=== PATIENT | female | born 1955 | race Caucasian/White ===

== ENCOUNTER 2019-03-08 23:46 | Inpatient (IN) | payer OTHER ==
[~2019-03-08] VITALS: Ht 165.1 cm; Wt 80.9 kg
[2019-03-08 23:49] VITALS: BP 61/36
[2019-03-09] VITALS (62 sets, daily range): BP systolic 56–169; BP diastolic 23–137
[2019-03-09 01:09] LABS: BASOPHILS 0.7 % (0.0-2.0); RBC 1.24 mil/uL (4.20-5.00); WBC 5.7 thou/uL (4.0-11.0)
[2019-03-09 01:11] LABS: ABSOLUTE NEUTROPHILS 4.1 thou/uL (1.4-8.2); EOSINOPHILS 0.6 % (0.0-3.0); LYMPHOCYTES 22.3 % (24.0-44.0); MCHC 32.6 g/dL (28.0-37.0); MCV 91.9 fL (80.0-100.0); MONOCYTES 4.7 % (1.0-8.0); PLATELET COUNT 98 thou/uL (150-400); POLYS 71.7 % (36.0-66.0); RDW 17.5 % (10.5-14.5)
[2019-03-09 01:13] LABS: HEMATOCRIT 11.4 % (37.0-47.0); HEMOGLOBIN 3.7 gm/dL (12.0-15.0)
[2019-03-09 01:16] LABS: ANION GAP 17 mmol/L (7-16); BUN 48 mg/dL (7-18); CALCIUM 7.9 mg/dL (8.5-10.1); CHLORIDE 102 mmol/L (98-107); CO2 19 mmol/L (21-32); CREATININE 1.3 mg/dL (0.6-1.0); GLUCOSE 125 mg/dL (74-106); POTASSIUM 3.9 mmol/L (3.5-5.1); SODIUM 138 mmol/L (136-145)
[2019-03-09 01:26] LABS: ALBUMIN 2.7 g/dL (3.4-5.0); DIRECT BILIRUBIN < 0.1 mg/dL (<0.1-0.3); SGOT 10 U/L (15-37); SGPT 20 U/L (30-65); TOTAL BILIRUBIN 0.2 mg/dL (<0.1-1.0); TOTAL PROTEIN 5.6 g/dL (6.4-8.2); TROPONIN-I <0.06 ng/mL (<0.06)
--- NOTE | 2019-03-09 04:30 | NUR ---
ADMISSION NOTE: PT ARRIVED ON THE UNIT @ 5010 03/09/19, WITH THE ASSIST OF PANCHITO MOREL FROM THE ER, ONLY GTT RUNNING @ ARRIVAL IS LEVOPHED RUNNING @ 24. ASSESSMENTS AND VSS COMPLETE PER ICU PROTOCOL. PT ALERT TO SELF ONLY, PER REPORT FROM SPAR MACHINE OPERATOR, PT HAS DEMENTIA ( BASELINE), PT ABLE TO FOLLOW SIMPLE COMMANDS. PT SR ON THE MONITOR, AFEBRILE, NO EDEMA NOTED, ALL LIMBS WARM. PT ON 4L OF 02, SATS IN THE HIGH 90'S, PT DESATS WHILE ASLEEP. PT NPO, PROTONIX GTT IN PLACE. ANDINO IN PLACE, GOP NOTED. WILL CONTINUE TO FOLLOW ORDERS. FALL PRECAUTIONS IN PLACE, PLAN OF CARE- CONT TO MONITOR.
[2019-03-09 06:31] LABS: HEMATOCRIT 24.7 % (37.0-47.0); MCH 28.4 pg (26.0-34.0); MCHC 33.2 g/dL (28.0-37.0); OBSERVED RETIC COUNT 1.25 % (0.6-2.6); RBC 2.88 mil/uL (4.20-5.00); RDW 15.9 % (10.5-14.5); WBC 11.2 thou/uL (4.0-11.0)
[2019-03-09 06:33] LABS: HEMOGLOBIN 8.2 gm/dL (12.0-15.0); MCV 85.6 fL (80.0-100.0)
[2019-03-09 06:49] LABS: CALCIUM 7.9 mg/dL (8.5-10.1); CREATININE 1.2 mg/dL (0.6-1.0)
[2019-03-09 06:52] LABS: % SATURATION 98 % (20-39); IRON 295 ug/dL (50-170); TIBC 302 ug/dL (250-450)
[2019-03-09 07:24] LABS: FOLIC ACID 8.6 ng/mL (8.6-58.9)
[2019-03-09 10:15] LABS: URINE BILIRUBIN NEGATIVE (Negative); URINE BLOOD 1+ (Negative); URINE CLARITY CLEAR; URINE COLOR YELLOW; URINE GLUCOSE-RANDOM* NEGATIVE (Negative); URINE KETONES NEGATIVE (Negative); URINE NITRITE-REFLEX NEGATIVE (Negative); URINE PROTEIN (DIPSTICK) NEGATIVE (Negative); URINE UROBILINOGEN 0.2 E.U./dl (0.2-1.0)
[2019-03-09 10:20] LABS: URINE LEUKOCYTES-REFLEX 1+ (Negative)
[2019-03-09 10:22] LABS: HEMATOCRIT 23.3 % (37.0-47.0); HEMOGLOBIN 7.8 gm/dL (12.0-15.0)
[2019-03-09 10:33] LABS: CASTS None Seen /LPF (None Seen); SQUAMOUS 0-3 Few /LPF (0-3)
[2019-03-09 10:34] LABS: BACTERIA-REFLEX None Seen /HPF (None Seen); CRYSTALS None Seen /LPF (None Seen); URINE RBC 0-2 Rare /HPF (0-2); URINE WBC-REFLEX 6-15 Few /HPF (0-5)
--- NOTE | 2019-03-09 11:56 | NUR ---
PT USING OUT OF BED AGITATED WITH STAFF KICKING NURSES. PULLED OUT LINES FOR BLOOD PRESSURE SUPPORT MEDS. NOW. SECURITY PAGED NOW. CHARGE NURSE AT BEDSIDE IN RESTRAINTS NOW
--- NOTE | 2019-03-09 12:17 | NUR ---
MARIA R IV TEAM UP TO START IV ACESS PT IN RESTRAINTS AND A LITTLE BIT MORE CALMER NOW AFTER MEDS. REMAINS IN SOFT WRIST RESTRAINTS BILATERAL. AND SAFE ORDER IN COMPUTER AND CHARTING MAINTIAINED. FOR PT AND NURSES SAFETY AT THIS TIME
--- NOTE | 2019-03-09 12:28 | NUR ---
Case opened to follow for dc planning. Pt is a&ox1 this morning. Vibration Analyst spoke with the socialworker at [facility]. The pt has been there about one month. She was admitted to their secured memory care unit and [place]. The pt does have a DPOA for HC and a copy is on the chart. The pt's sign other of many years Curt Fleming is the primary agent and son Mayco the alternate. Vibration Analyst spoke with Curt. He will be in later today. He is aware that she is in ICU on pressure support. He reports that he has called the pt's dtr in law Felicia Heart to update her son Mayco. Apparently Mayco has lost his cell phone. Curt would like the pt's dtr in law added to the spokes persons list. He reports that she was a DNR at [facility];however the long-term has her listed as a full code. He would like to discussed DNR status with the attending. The attending updated as well as nursing. The pt has hx of ethol abuse and depression/PTSD. Dc plan at this time is to [facility]. She normally walks with a cane and is a smoker. Will follow along to assist with her return to the facility when medically stable.
--- NOTE | 2019-03-09 13:51 | NUR ---
WOUND CONSULT: PT. WAS SEEN TODAY BY DR. JONES AND MYSELF. PT. HAS DIABETIC ULCERS TO HER LEFT FOOT LEFT GREAT TOE AND LEFT 4TH TOE. BOTH SITES HAVE STABLE BLACK ESCHAR AT THIS TIME. RECOMMENDATIONS: PAINT WITH BETADINE, LEAVE OPEN TO AIR, COMPLETE CARES DAILY PT. AND STAFF NURSE WERE INSTRUCTED ON PLAN OF CARE.
--- NOTE | 2019-03-09 15:18 | NUR ---
VASCULAR ACCESS CONSULTED FOR PICC, PT'S MEDS,HISTORY,LABS REVIEWED. PT HAS HX OD EMBOLI/THROMBUS IN UPPER EXTREMETIES.,SO PICC IN CONTRAINDICATED. PT IS VERY RESTLESS,SHE DID LET ME START PIV BUT REFUSED TO LET ME START A 2ND IV, REFUSING FOR ME TO EVEN LOOK WITH THE ULTRASOUND. WILL LET PT CALM DOWN BEFORE ATTEMPTING TO APPROACH AGAIN.
--- NOTE | 2019-03-09 17:05 | NUR ---
VASCULAR ACCESS CONSULTED FOR CENTRAL LINE PLACEMENT. PT WAS PREPPED AND DARPED FOR MAX BARRIER PRECAUTIONS. RIJ WAS WIDELY PATENT WITH USG, 1% LIDOCAINE GIVEN SQ. 6FR TL JACC 25CM INSERTED TO 7CM EXTERNAL. LINE SECURED AND STAT CXR ORDERED
--- NOTE | 2019-03-09 17:09 | NUR ---
RIKenneth RELEASED FOR IMMEDIATE USE PER PROTOCOL TO TATYANA MOREL
[2019-03-09 17:44] LABS: POTASSIUM 3.6 mmol/L (3.5-5.1)
--- NOTE | 2019-03-09 17:47 | NUR ---
PT IS ALERT TO SELF AND SITUATION. IS CONFUSED ON TIME THINKS ITS 1950'S PT REPORTS. HISTORY OF DEMENTIA. CHANGED CODE STATUS TODAY TO DNR. PER DPOA OF FAMILY. LUNGS ARE CLEAR. TO DIMINISHED. ON 4 LITERS OXYGEN. ON LEVO AND MARNIE FOR BLOOD PRESSURE SUPPORT. ABDOMEN IS SOFT AND ROUND BOWEL SOUNDS ACTIVE X4. RESTRAINTS BILATERAL WRIST PT GOT COMBATIVE AND AGITATED TOWARDS STAFF. HALIDOL GIVEN. PT IN NSR TO BIGEMINY TODAY. DR. LOERA AWARE . LABS DONE AND IV TEAM PUT A LEFT JUGULAR IN TODAY FOR ACCESS OF PT. WILL CONTINUE PLAN OF CARE PER NURSING
[2019-03-09 17:50] LABS: ALBUMIN 2.6 g/dL (3.4-5.0); MAGNESIUM 1.6 mg/dL (1.8-2.4); TOTAL BILIRUBIN 0.5 mg/dL (<0.1-1.0); TOTAL PROTEIN 5.5 g/dL (6.4-8.2)
--- NOTE | 2019-03-09 18:57 | NUR ---
PAGED DR. LOERA NO CALL BACK AND PAGED Marisela STUBBS SKIN PILER IN REGARDS TO PT STATUS FOR ORDERS AND CHANGE IN PTS STATUS.
[2019-03-09 20:58] LABS: URINE BILIRUBIN NEGATIVE (Negative); URINE BLOOD 1+ (Negative); URINE CLARITY CLEAR; URINE COLOR YELLOW; URINE GLUCOSE-RANDOM* NEGATIVE (Negative); URINE KETONES NEGATIVE (Negative); URINE LEUKOCYTES 2+ (Negative); URINE NITRITE NEGATIVE (Negative); URINE PROTEIN (DIPSTICK) 2+ (Negative); URINE SPECIFIC GRAVITY 1.015 (1.005-1.035); URINE UROBILINOGEN 0.2 E.U./dl (0.2-1.0)
[2019-03-09 21:09] LABS: BACTERIA None Seen /HPF (None Seen); CASTS None Seen /LPF (None Seen); CRYSTALS None Seen /LPF (None Seen); SQUAMOUS 0-3 Few /LPF (0-3); URINE RBC 3-10 Few /HPF (0-2); URINE WBC >25 Many /HPF (0-5)
--- NOTE | 2019-03-09 21:38 | NUR ---
Pt became diaphoretic and c/o not feeling well. She became hypotensive and desaturation post contrast was given. IVF bolus was given, titrating Neosynnephrine to Max dose during this RN tx her back to ICU. Notified her nurse for possible reaction to contrast. See orders.
[2019-03-10] VITALS (101 sets, daily range): BP systolic 69–134; BP diastolic 34–80
--- NOTE | 2019-03-10 06:17 | NUR ---
ASSUMED CARE 1900 03/09/19, PT ASSESSMENTS AND VSS COMPLETE PER ICU PROTOCOL. PT ALERT TO SELF AND SITUATION, DISORIENTED TO TIME AND PLACE, PER REPORT PT HAS A BASELINE OF DEMENTIA, PT ABLE TO FOLLOW COMMANDS, PT DOES GET RESTLESS AND PULL ON MEDICAL EQUIPMENT, RESTRAINTS IN PLACE TO PROTECT PT. PT IN SR, VISIBLE U WAVES- BIGEMINY ON THE MONITOR, PROVIDER AWARE, PT ON LEVOPHED AND MARNIE FOR BLOOD PRESSURE SUPPORT, NS @ 125 CC/HR. CONTRAST DYE HAS BEEN ADDED TO THE ALLERGIC REACTIONS, PT HAD A REACTION WHEN SHE WENT TO CT FOR TEST, SHE BECAME HYPOTENSIVE, SATS DROPPED, DIAPHORETIC, DAIVD TOWEL SEWER CALLED, ORDERS RECIEVED, PT DOWN TO BASELINE NOW. PT ON 4L NC WHILE AWAKE AND ON CPAP WHILE ASLEEP. PT ON A SOFT/FIBER DIET, PROTINIX GTT IN PLACE, HX OF HEMO-OCCULT + ANDINO IN PLACE, GOP NOTED. PLAN OF CARE- CONT TO MONITOR TO MONITOR.
[2019-03-10 07:51] LABS: HEMATOCRIT 23.8 % (37.0-47.0); HEMOGLOBIN 8.2 gm/dL (12.0-15.0)
[2019-03-10 08:25] LABS: BE(vivo) -4.3 mmol/L (-2 to +3); HCO3 20.5 mmol/L (22.0-26.0); PCO2 36.3 mmHg (35.0-45.0); PO2 150.8 mmHg (80.0-100.0); pH 7.369 (7.360-7.450); sO2 98.9 % (92.0-98.0)
--- NOTE | 2019-03-10 08:55 | HC ---
[facility] [place] [address] CONSULTATION Name: DIANE LIEBERMAN Room #: 247-P ADM IN M.R.#: [id number] Admission: 03/09/19 ������������������ Attend Phys: Jaron Salas MD Discharge: ������������������ Date of : 57 Report #: [id number] THIS REPORT FOR: //name// CC: Curt Salas DATE OF SERVICE: 03/09/2019 CHIEF COMPLAINT: Diabetic ulcerations to the left first and fourth toes. HISTORY OF PRESENT ILLNESS: This is a 63-year-old female patient who was admitted to the hospital with a history of hypotension. She apparently was previously found wandering in the streets and sent to a nursing care facility about a month ago. She is awake and alert, but confused. She felt to have possible upper GI bleeding. I have been asked to see her with regard to ulcers of her left foot that have been present possibly for a month. She states that she has been walking around outdoors without shoes on. PAST MEDICAL HISTORY: Positive for COPD, dementia, hepatitis C, hypothyroidism, type 2 diabetes mellitus. Past history of alcohol abuse, major depression, PTSD, insomnia, sleep apnea, heart disease, cerebrovascular accident, AAA, peripheral vascular disease, gastroesophageal reflux. ALLERGIES: PENICILLIN. MEDICATIONS: Include aztreonam, Haldol, insulin, norepinephrine. FAMILY HISTORY: Noncontributory. REVIEW OF SYSTEMS: Not obtainable due to the patient's confusion, other than that, mentioned in the history of present illness. PHYSICAL EXAMINATION: VITAL SIGNS: Temperature 98.8, pulse 88, respiratory rate of 14, blood pressure 102/53. GENERAL: This is a chronically ill, slightly agitated appearing female patient who appears to be in no distress. HEENT: Head normocephalic. Nose and throat are clear. NECK: Supple. LUNGS: Clear. ABDOMEN: Soft. Bowel sounds present. EXTREMITIES: Lower extremities demonstrate an eschar on the tips of the left first and fourth toes. No bony exposure is noted. The eschar appears to be quite thick on the distal portion of the left great toe. There is no overt evidence of infection. Distal pulses are palpable. [facility] [address] [place] [address] CONSULTATION Name: DIANE LIEBERMAN Room #: 247-P ADM IN M.R.#: [id number] Admission: 03/09/19 ������������������ Attend Phys: Jaron Salas MD Discharge: ������������������ Date of : 57 Report #: [id number] CLINICAL IMPRESSION: 1. Diabetic ulcerations to the left foot involving the first and fourth toes. 2. Sepsis and hypotension, possible hypovolemia. 3. Diabetes mellitus with hyperglycemia. 4. History of abdominal aortic aneurysm. RECOMMENDATIONS: At this point in time, we will apply topical "Betadine paint" to the eschar on the toes, otherwise, can be left open to air. I do not feel that it is necessary to do debridement at this time. I think the eschar may be protective at present and will likely slough over time if she epithelializes provided she has adequate blood flow. We will check an arterial Doppler to look at her macrovascular flow. I believe there is probably a component of microvascular disease related to her diabetes. She will need aggressive nutritional support. Recommend continuation of current medications. Reviewed findings and discussion with Dr. Salas. I appreciate being asked to see her in consultation. ��������������������������������������������� <ELECTRONICALLY SIGNED> ���������������������������������������� By: Elmer Gonzalez MD ��������������������������������������������� 03/10/19 0855 [id number] Elmer Gonzalez MD /nt
--- NOTE | 2019-03-10 09:08 | NUR ---
Assess due to notification of wound-pt with diabetic foot ulcer to left foot, and toes with eschar. Admitted with GIB, hgb down to 3.7 but improved after tranfusion 8.7 and no active bleed per GI. Hx etoh abuse, cva, dm. DNR status. Has been aggitated/combative and in restraints in ICU. No wt hx available. Unsure intake trends. For now offer glucerna shakes bid until po intake established. Low nutrition risk
--- NOTE | 2019-03-10 09:29 | EKG ---
[place] [address] [facility] [facility] [place] [address] ELECTROCARDIOGRAM REPORT Name: DIANE LIEBERMAN Room #: 247-P ADM IN M.R.#: [id number] ������������������ Admission: 03/09/19 ������������������ Attend Phys: Jaron Salas MD Discharge: ������������������ Date of : 57 Report #: [id number] ����������������������������������������������������������������� [id number] THIS REPORT FOR: //name// [facility] ED Test Date: 2019-03-09 Test Time: 00:27:04 Pat Name: DIANE LIEEBRMAN Department: Room: [facility] Gender: F Communications Clerk: cristel : 1955 Requested By: Doni Bahena Order Number: [id number] MD: Chu Hardwick Measurements Intervals [place] Rate: 92 P: 79 ID: [id number] QRS: 44 QRSD: 91 T: 224 QT: 338 QTc: 419 Interpretive Statements Sinus rhythm Nonspecific ST and T wave abnormality Compared to ECG 06/01/2000 15:51:10 ST and T wave abnormality is now present Electronically Signed On 03-10-2019 9:29:17 CDT by Chu Hardwick [email or web address] ��������������������������������������������� <ELECTRONICALLY SIGNED> ���������������������������������������� By: Chu Hardwick MD, [facility] ��������������������������������������������� 03/10/19 0929 Chu Hardwick MD, [facility] /EPI
--- NOTE | 2019-03-10 09:30 | EKG ---
[address] [place] [address] ELECTROCARDIOGRAM REPORT Name: DIANE LIEBERMAN Room #: 247-P ADM IN M.R.#: [id number] ������������������ Admission: 03/09/19 ������������������ Attend Phys: Jaron Salas MD Discharge: ������������������ Date of : 57 Report #: [id number] ����������������������������������������������������������������� [id number] THIS REPORT FOR: //name// [facility] ED Test Date: 2019-03-09 Test Time: 02:18:10 Pat Name: DIANE LIEBERMAN Department: Room: 247 Gender: F Computer System Technician: cristel : 1955 Requested By: Doni Bahena Order Number: [id number] MD: Chu Hardwick Measurements Intervals [place] Rate: 98 P: 90 [place]: 150 QRS: 57 QRSD: 95 T: 53 QT: 345 QTc: 441 Interpretive Statements Sinus rhythm ST and T wave abnormality Compared to ECG 06/01/2000 15:51:10 Nonspecific change in the T wave abnormality Electronically Signed On 03-10-2019 9:30:16 CDT by Chu Hardwick [email or web address] ��������������������������������������������� <ELECTRONICALLY SIGNED> ���������������������������������������� By: Chu Hardwick MD, [facility] ��������������������������������������������� 03/10/19 0930 7 7 Chu Hardwick MD, [facility] /EPI
--- NOTE | 2019-03-10 09:43 | EKG ---
[address] [place] [address] ELECTROCARDIOGRAM REPORT Name: DIANE LIEBERMAN Room #: 247- ADM IN M.R.#: [id number] ������������������ Admission: 03/09/19 ������������������ Attend Phys: Jaron Salas MD Discharge: ������������������ Date of : 57 Report #: [id number] ����������������������������������������������������������������� [id number] THIS REPORT FOR: //name// [facility] Test Date: 2019-03-09 Test Time: 16:33:03 Pat Name: DIANE LIEBERMAN Department: Room: [facility] Gender: F Target Network Analyst: Aftab JIMENEZ : 1955 Requested By: Jaron Salas Order Number: [id number] MD: Chu Hardwick Measurements Intervals [place] Rate: 83 P: 74 [place]: 141 QRS: 48 QRSD: 86 T: 13 QT: 368 QTc: 433 Interpretive Statements Sinus rhythm Nonspecific ST segment abnormality Compared to ECG 06/01/2000 15:51:10 No significant change was found Electronically Signed On 03-10-2019 9:43:32 CDT by Chu Hardwick [email or web address] ��������������������������������������������� <ELECTRONICALLY SIGNED> ���������������������������������������� By: Chu Hardwick MD, [facility] ��������������������������������������������� 03/10/19 0943 [id number] Chu Hardwick MD, [facility] /EPI
--- NOTE | 2019-03-10 11:23 | NUR ---
WOUND FOLLOW UP: PT. WAS SEEN TODAY BY DR. ROTHMAN AND MYSELF. PT. WOUNDS TO HER LEFT TOES REMAIN DRY AND STABLE AT THIS TIME. RECOMMENDATIONS: CONTINUE WITH CURRENT PLAN OF CARE. PT. AND STAFF NURSE WERE INSTRUCTED ON PLAN OF CARE.
[2019-03-10] MEDS ORDERED: TYLENOL325 MG PO (13:08)
[2019-03-10] MEDS ORDERED: ASPIR 8181 MG PO (13:09)
[2019-03-10] MEDS ORDERED: VITAMIN D1000 UNI1 PO (13:09)
[2019-03-10] MEDS ORDERED: ALBUTEROL2.5 MG/31 INH (13:09)
[2019-03-10] MEDS ORDERED: LIPITOR80 MG PO (13:09)
[2019-03-10] MEDS ORDERED: HUMALOG100 UNIT/1 SUBQ (13:10)
[2019-03-10] MEDS ORDERED: LANTUS100 UNIT/M SUBQ (13:10)
[2019-03-10] MEDS ORDERED: DEPAKOTE 250MG250 M1 PO (13:10)
[2019-03-10] MEDS ORDERED: IRON325 PO (13:10)
[2019-03-10] MEDS ORDERED: SYNTHROID175 MCG PO (13:11)
[2019-03-10] MEDS ORDERED: ZYVOX600 MG PO (13:11)
[2019-03-10] MEDS ORDERED: SINGULAIR 10 MG10 M1 PO (13:11)
[2019-03-10] MEDS ORDERED: SEROQUEL 50 MG50 MG PO (13:12)
[2019-03-10] MEDS ORDERED: PROBIOTIC1 EAC1 PO (13:12)
[2019-03-10] MEDS ORDERED: XARELTO20 MG PO (13:12)
[2019-03-10] MEDS ORDERED: VITAMIN C100 MG PO (13:13)
[2019-03-10] MEDS ORDERED: SYMBICORT160 MCG/4. INH (13:13)
--- NOTE | 2019-03-10 17:02 | NUR ---
PT IN RESTRAINTS BILATERAL WRIST. ALERT TO SELF CONFUSED ON TIME AND PLACE. LUNGS CLEAR TO DIMINISHED. BIGEMINY NOTED ON THE MECHANICAL ENGINEERING TECHNICIAN. ANDINO TO DD WITH CLEAR YELLOW URINE PRESENT. ON BLOOD PRESSURE MEDS FOR SUPPORT. ABDOMEN IS SOFT ON A SOFT DIET TODAY TOLERATED WELL. CHANGED SHEETS TODAY. EDUCATION DONE WITH RESTRAINTS AND BLOOD PRESSURE MEDS AND SAFETY IN REGARDS TO HER HEALTH. WILL CONTINUE TO ASSESA ND MONITOR PER NURSING
[2019-03-11] VITALS (82 sets, daily range): BP systolic 65–148; BP diastolic 33–87
--- NOTE | 2019-03-11 04:54 | NUR ---
ASSUMED PATIENT CARE AT 1900. PATIENT AAOX2 (SELF AND PLACE). LEVOPHED, NEOSYNEPHRINE, AND PROTONIX ARE INFUSING. PATIENT IS ON 4 L NC WITH O2 SATS AT 100% PATIENT BECAME VIOLENT AND BEGAN TO HIT AND TRIED TO KICK THIS RN. HALDOL GIVEN. PATIENT BEGGING FOR THE RESTRAINTS TO BE TAKEN OFF. EDUCATED PATIENT ON THEIR NEED D/T PATIENT HAS HX OF RIPPING OUT IV LINES. PATIENT CALMED DOWN AND RESTED. PATIENT REMAINS NEEDING VASOPRESSOR SUPPORT TO MAINTAIN ACCEPTABLE BLOOD PRESSURE. PATIENT REMAINS THE SAME AND IS NOT PROGRESSING TOWARDS GOAL.
[2019-03-11 05:00] LABS: ALBUMIN 2.6 g/dL (3.4-5.0); CALCIUM 7.7 mg/dL (8.5-10.1); CREATININE 0.8 mg/dL (0.6-1.0); MAGNESIUM 1.6 mg/dL (1.8-2.4); POTASSIUM 3.1 mmol/L (3.5-5.1); TOTAL BILIRUBIN 0.3 mg/dL (<0.1-1.0); TOTAL PROTEIN 5.4 g/dL (6.4-8.2)
[2019-03-11 05:06] LABS: HEMOGLOBIN 6.8 gm/dL (12.0-15.0)
[2019-03-11 05:08] LABS: MCH 29.7 pg (26.0-34.0); MCV 84.9 fL (80.0-100.0); PLATELET COUNT 97 thou/uL (150-400); RBC 2.27 mil/uL (4.20-5.00); RDW 15.8 % (10.5-14.5); WBC 10.7 thou/uL (4.0-11.0)
[2019-03-11 05:12] LABS: HEMATOCRIT 19.3 % (37.0-47.0)
[2019-03-11 05:43] LABS: ABSOLUTE NEUTROPHILS 8.1 thou/uL (1.4-8.2); ANISOCYTOSIS 1+; MICROCYTES 1+
[2019-03-11 05:47] LABS: PLATELET ESTIMATE DEC
--- NOTE | 2019-03-11 09:16 | NUR ---
WOUND FOLLOW UP: PT. WAS SEEN TODAY BY DR. WHITE AND MYSELF. PT. WOUNDS TO HER LEFT TOES REMAIN DRY AND STABLE. RECOMMENDATIONS: CONTINUE WITH CURRENT PLAN OF CARE. PT. AND STAFF NURSE WERE INSTRUCTED ON PLAN OF CARE.
--- NOTE | 2019-03-11 10:15 | NUR ---
Assumed care of patient at 0700. Patient remains in restraints to prevent pulling of central line, but is alert, Ox2, cooperative, and following commands at this moment. Very forgetful of surroundings and circumstances of hospital admission. Continues on pressors (levo and sakina) for BP support. Titrating down O2 as able. Call rec'd from Brittany Cabrera, infectious disease RN and instructed that patient could come out of contact precautions. Unit of PRBCs infusing as ordered. Report given to oncoming RN.
[2019-03-11 14:12] LABS: HEMATOCRIT 23.5 % (37.0-47.0)
[2019-03-11 14:27] LABS: APTT 25.3 Seconds (24.5-32.8); PROTIME 10.6 Seconds (9.3-11.4)
[2019-03-11 14:33] LABS: MAGNESIUM 1.5 mg/dL (1.8-2.4)
--- NOTE | 2019-03-11 15:39 | NUR ---
CAMERON FROM [facility] UPDATED NO WEEKEND DC FOR PT.
[2019-03-12] VITALS (71 sets, daily range): BP systolic 89–161; BP diastolic 40–138
[2019-03-12 05:00] LABS: HEMATOCRIT 21.1 % (37.0-47.0); HEMOGLOBIN 7.2 gm/dL (12.0-15.0)
[2019-03-12 05:08] LABS: HAV IgM AB (ANTI-HAV IgM) Negative (Negative); HEPATITIS B SURFACE AG Negative (Negative); HEPATITIS C VIRUS AB 1.3 (0.0-0.9)
[2019-03-12 05:11] LABS: PROTIME 10.4 Seconds (9.3-11.4)
[2019-03-12 05:12] LABS: ALBUMIN 2.4 g/dL (3.4-5.0); CALCIUM 7.4 mg/dL (8.5-10.1); CREATININE 0.9 mg/dL (0.6-1.0); MAGNESIUM 1.6 mg/dL (1.8-2.4); POTASSIUM 3.7 mmol/L (3.5-5.1); TOTAL BILIRUBIN 0.4 mg/dL (<0.1-1.0)
--- NOTE | 2019-03-12 05:50 | NUR ---
ASSUMED PATIENT CARE AT 1900. PATIENT AAOX1 TO SELF ONLY. PATIENT NOTED TO HAVE LEVOPHED, OCTREOTIDE, PROTONIX, AND NS INFUSING. NOTIFIED ENROLLMENT COUNSELOR THAT PATIENT HAS A LOW MG LEVEL. RECEIVED ORDERS TO REPLACE MG. PATIENT ALSO NOTED TO HAVE ABSENT RADIAL PULSES WITH THE DOPPLER. ARTERIAL US OF BUE DONE WHICH WAS NEGATIVE FOR BLOOD CLOTS. PATIENT CONTINUES TO HAVE PERIODS OF AGITATION DEMONSTRATING AGGRESSIVE BEHAVIOR AND AT OTHER TIMES IS CALM AND COORPERATIVE. PATIENT VS REMAINED STABLE THROUGOUT THE NIGHT WITH LEVOPHED INFUSING AT A LOW DOSE RATE. PATIENT PROGRESSING TOWARDS GOAL.
--- NOTE | 2019-03-12 19:00 | NUR ---
Assumed care of patient at 0700. Patient remains in restraints for forgetfullness or lines, and attempting to pull at leads, O2, etc. Continues on octreotide, protonix, IVF. Orders for 1 unit PRBCs. Patient having small to moderate bowel movements, continues to be dark, black, tarry. Weaned off all pressors, plans for EGD on Thursday per GI. At the start of the day patient was pleasantly confused, easily redirectable. During afternoon, patient was becoming more easily agitated and forgetful of surroundings. PRN haldo given per EMAR, with little affect. Approx 1630, this RN was alerted to the room by shouting from patient. Discovered that patient had pulled out left IJ central line, unit of blood was infusing. Stopped all pumps and pressure applied to IJ site. Hospitalist notified, family notified. Patient at this point was aggresive and combative towards nursing. Onetime dose IM ativan given to attempt another central line. IV team at bedside, multiple attempts for line with no success. PIV to left AC obtained. Dr. Dotson updated. New orders for PRN ativan/haldol per CIWA protocol. Dr. Dotson made aware that with limited IV access not all current med orders would be able to be given, he is ok with only doing protonix, octreotide, IVF as able. Blood transfusion never finished as it took too long to re-establish IV access. Patient rec'd approx 2/3 of unit. See vitals documentation. Report given to oncoming RN.
--- NOTE | 2019-03-12 19:17 | NUR ---
vascular access team called to replace rij since pt pulled it out this afternoon.. PT VERY RESTLESS ,REFUSING ANY PIV'S OR JUGULAR LINE REPLACEMENT. HARPAL MOREL SPOKE WITH , ATIVAN GIVEN TO CALM PT FOR CENTRAL LINE INSERTION DUE TO MEDICAL NECCESSITY. LEFT JUGULAR IS NONCOMPRESSABLE. RIGHT PREVIOUS SITE HAS LARGE BRUISE DUE TO PT PULLED RIJ OUT DURING BLOOD TRANSFUSION. AFTER PT WAS CALM, PT WAS PREPPED AND DRAPED FOR MAX BARRIER PRECAUTIONS. NEEDLE INSERTED INTO RIJ THEN WHEN THREADING GUIDEWIRE PT BECAME COMBATIVE EVEN WITH ANOTHER RN ASSISTING TO HOLD PT'S HEAD. PT THEN BIT THROUGH THE PLASTIC AND BIT IV TEAM RN'S FINGER AND NEEDLE BECAME DISLODGED WITH SMALL HEMATOMA FORMING ON R NECK. PRESSURE HELD, DRG APPLIED.MADE SEVERAL ATTEMPTS ON RIJ BUT UNSUCCESSFUL. PIV STARTED. PICC LINE NOT APPROPRIATE DUE TO HX OF DVT'S IN UPPER EXTREMETIES. BUT UNSUCCESSFUL AND PT GETTING MORE COMBATIVE. PIV PLACED IN LAC. HARPAL MOREL NOTIFIED MD.NO FURTHER BLEEDING NOTED ON RIGHT NECK
--- NOTE | 2019-03-12 23:45 | NUR ---
AOX1, CONFUSED. ON 3L NC, NO SIGNS OF SOA AT REST. VSS. AFEBRILE. IV STARTED BY GEORGE TONG. REPORT GIVEN TO ZULEYMA MOREL. WILL CONTINUE TO MONITOR
[2019-03-13] VITALS (120 sets, daily range): BP systolic 69–173; BP diastolic 32–133
[2019-03-13 06:22] LABS: HEMATOCRIT 26.3 % (37.0-47.0); HEMOGLOBIN 8.9 gm/dL (12.0-15.0); MCH 29.3 pg (26.0-34.0); MCHC 33.8 g/dL (28.0-37.0); MCV 86.6 fL (80.0-100.0); RBC 3.04 mil/uL (4.20-5.00); RDW 14.9 % (10.5-14.5); WBC 8.6 thou/uL (4.0-11.0)
--- NOTE | 2019-03-13 06:49 | NUR ---
ASSUMED CARE AT 2330. PT LETHARGIC AND SLIGHTLY RESTLESS AT THE TIME. PT CONTINUED TO GET
--- NOTE | 2019-03-13 07:14 | NUR ---
ASSUMED CARE AT 2330. PT LETHARGIC AND SLIGHTLY RESTLESS. PT CONTINUED TO BECOME MORE RESTLESS AND WAS GIVEN ATIVAN PRN. EARLIER THIS AM, PT'S O2 SAT DROPPED TO THE LOW 80s AND PT'S O2 WAS INCREASED. EVENTUALLY, PT WAS SWITCHED TO CPAP. AT ABOUT 0600 THIS AM, ONE OF THE PT'S IVs INFILTRATED SO OCTREOTIDE GTT WAS STOPPED AND PROTONIX GTT CONTINUED UNTIL MORE IV ACCESS IS OBTAINED. ATTEMPTS WERE MADE TO START A NEW IV, BUT WERE UNSUCCESSFUL. WILL CONTINUE TO MONITOR.
[2019-03-13 08:06] LABS: ALBUMIN 2.8 g/dL (3.4-5.0); CALCIUM 7.8 mg/dL (8.5-10.1); CREATININE 0.9 mg/dL (0.6-1.0); MAGNESIUM 1.9 mg/dL (1.8-2.4); PHOSPHORUS 2.8 mg/dL (2.5-4.9); POTASSIUM 3.6 mmol/L (3.5-5.1)
--- NOTE | 2019-03-13 14:36 | NUR ---
PATIENT REMAINS CONFUSED THIS AM AND DROWSY. PATIENT CONTINUES TO SWING LEGS AND PULLS AGAINEST RESTRAINTS. DR OROZCO HERE TO PLACE A CENTRAL LINE ON PATIENT. PATIENT GRABBING THE PHYSICIAN, ORDER RECIEVED TO GIVE 4 OF ATIVAN. PATIENT CONTINUES TO GRAB AT THE DOCTOR AND ANOTHER 2MG OF ATIVAN ORDERED AND GIVEN. PATIENT THEN BECAME QUIET ENOUGH TO GET THE LINE PLACED. PRECEDEX STARTED PER ORDERS TO HELP PATIETN REMAIN CALM. NO OTHER CONCERNS AT THIS TIME. WILL CONTINUE TO MONITOR AND CARE PER PLAN OF CARE.
[2019-03-14] VITALS (69 sets, daily range): BP systolic 107–168; BP diastolic 45–89
[2019-03-14 05:17] LABS: HEMOGLOBIN 7.4 gm/dL (12.0-15.0); MCH 29.5 pg (26.0-34.0); MCHC 33.5 g/dL (28.0-37.0); MCV 87.9 fL (80.0-100.0); RBC 2.5 mil/uL (4.20-5.00); RDW 15.1 % (10.5-14.5); WBC 7.3 thou/uL (4.0-11.0)
[2019-03-14 05:31] LABS: CALCIUM 7.5 mg/dL (8.5-10.1); CREATININE 0.9 mg/dL (0.6-1.0); MAGNESIUM 1.7 mg/dL (1.8-2.4); POTASSIUM 3.5 mmol/L (3.5-5.1); TOTAL BILIRUBIN 0.4 mg/dL (<0.1-1.0); TOTAL PROTEIN 4.6 g/dL (6.4-8.2)
--- NOTE | 2019-03-14 06:00 | NUR ---
PT NPO FOR EGD THIS AM. REMAINS ON PRECEDEX AT 1 MCG FOR SEDTION. REQUIRED ATIVAN 3 X FOR SEVERE RESTLESSNESS. THROWS LEGS OVER BED RAIL. LEVOPHED GTT HAS REMAINS OFF THIS SHIFT. VSS SB TO SR NO BERNARDO,. WILL CONT TO MONITOR.
--- NOTE | 2019-03-14 14:21 | NUR ---
PATIENT HAD AN EGD, TOLERATED WELL. SHE IS SLEEPY AT THIS TIME, HOWEVER WITH ORAL CARE AND PUTTING BACK ON CPAP MACHINE SHE BECAME AGGITATED AND ATTEMPTED TO GRAB AT NURSE AND EQUIPMENT. WHEN LEFT ALONE, SHE IS ABLE TO REST. WHEN MESSED WITH SHE BECOMES AGGITATED. WILL CONTINUE TO MONITOR PATIENT STATUS.
--- NOTE | 2019-03-14 17:02 | NUR ---
FAXED CLINICAL UPDATE TO [facility] LEFT MS WITH ADM. OF UPDATE FAXED. DCP TO FOLLOW.
--- NOTE | 2019-03-14 17:03 | NUR ---
FAXED CLINICAL UPDATE TO [facility] SPOKE WITH CAMERON VIERA RECEIVED UPDATE. DCP TO FOLLOW.
--- NOTE | 2019-03-14 17:20 | NUR ---
PATIENT HAS RESTED THROUGHOUT THE DAY. SHE IS AWAKE AT THIS TIME WITH EYES OPEN. SHE EXPRESSED SHE DOESN'T KNOW WHERE SHE IS. CPAP IS CURRENTLY ON AND IN PLACE. SHE DENIES PAIN AT THIS TIME. SHE HAD AN EGD TODAY AND TOLERATED IT WELL PER REPORT. NURSE ATTEMPTED TO NOTIFY FAMILY AND LINE WAS BUSY. NURSE TO CALL BACK SHORTLY. PLAN OF CARE IS TO CONTINUE TO MONITOR PATIENT ASSESSMENTS, VITAL SIGNS, ORAL CARE Q2 HOURS, AND REPOSITION. REORIENTATION PROVIDED THROUGHOUT THE DAY. SHE HAS HAD TIMES OF AGGITATION AND PULLING GOWN OFF WELL PULLING AT LINES. RESTRAINTS TO CONTINUE AT THIS TIME PER PHYSICIAN ORDER.
--- NOTE | 2019-03-14 20:51 | NUR ---
[facility] 9. DOES NOT OPEN EYES, CONFUSED, WITHDRAWS FROM PAINFUL STIMULI. PT ALTERNATES BETWEEN LETHARGY AND AGITATION. BECOMES AGITATED IN RESPONSE TO EVEN MINIMAL EXTERNAL STIMULI. MANAGING AGITATION WITH PRECEDEX. WHEN PT MORE ALERT, SHE BECOMES COMBATIVE. BUE RESTRAINTS IN PLACE. SINUS BRADYCARDIA TO SINUS RHYTHM ON MONITOR. LUNGS DIMINISHED TO AUSCULTATION. CPAP IN USE. VITAL SIGNS AND ASSESSMENTS DOCUMENTED. WILL CONTINUE TO MONITOR.
[2019-03-15] VITALS (24 sets, daily range): BP systolic 106–144; BP diastolic 50–77
[2019-03-15 05:08] LABS: HEMATOCRIT 24.1 % (37.0-47.0); HEMOGLOBIN 8.3 gm/dL (12.0-15.0); MCH 29.8 pg (26.0-34.0); MCHC 34.5 g/dL (28.0-37.0); MCV 86.5 fL (80.0-100.0); RBC 2.79 mil/uL (4.20-5.00); RDW 15.3 % (10.5-14.5); WBC 8.5 thou/uL (4.0-11.0)
[2019-03-15 05:18] LABS: ALBUMIN 2.2 g/dL (3.4-5.0); CALCIUM 7.6 mg/dL (8.5-10.1); CREATININE 0.9 mg/dL (0.6-1.0); MAGNESIUM 1.3 mg/dL (1.8-2.4); TOTAL BILIRUBIN 0.3 mg/dL (<0.1-1.0)
[2019-03-15 05:37] LABS: POTASSIUM 2.7 mmol/L (3.5-5.1)
--- NOTE | 2019-03-15 11:09 | P ---
[facility] [place] [address] PROCEDURE REPORT Name: DIANE LIEBERMAN Room #: 241-P ADM IN M.R.#: [id number] Admission: 03/09/19 ������������������ Attend Phys: Jaron Salas MD Discharge: ������������������ Date of : 57 Report #: [id number] THIS REPORT FOR: //name// CC: Curt Salas MD DATE OF SERVICE: 03/14/2019 PROCEDURE PERFORMED: Upper endoscopy with biopsies. HISTORY OF PRESENT ILLNESS: The patient is a 63-year-old female who is currently in the ICU, sedated on Precedex, history of mental status changes, history of chronic hepatitis C, had a severe anemia when she was admitted with hemoglobin of 3.7 on 03/09/2019. Throughout the weekend, she was on blood pressure support. She has now been weaned off pressure support. She has been transfused a total of 4 units of packed cells. Her hemoglobin dropped from 8.9 yesterday to 7.4. There have been no obvious signs of bleeding at this time. She has been on octreotide drip as well as Protonix 40 mg IV b.i.d. Plan is for EGD today. DESCRIPTION OF PROCEDURE: The risks and benefits of the procedure were explained to the durable power of printing press operator apprentice, those risks including but not limited to bleeding, perforation, the risk of sedation. He understood these risks and gave informed consent. The procedure was performed in the ICU at the bedside. Anesthesia was provided using propofol per Anesthesia Department. Next, using a standard Olympus upper endoscope, the scope was placed in the patient's mouth and advanced under direct vision through the esophagus, stomach and into the second portion of the duodenum. The esophagus was normal throughout. GE junction was normal. No evidence of esophageal varices. In the stomach, there was a small amount of liquid in the fundus. Multiple clean white gastric ulcers were noted in the mid body and the antrum. These range in size from 3-5 mm. There was a mild diffuse atrophic appearing gastritis as well as multiple erosions as well. Again, no evidence of bleeding. Biopsies were obtained to rule out H. pylori. The pylorus was normal and patent. The duodenal bulb, first and second portion were all normal. No evidence of blood in the duodenum. At this point, the scope was then withdrawn and the procedure terminated. The patient tolerated the procedure well. IMPRESSION: 1. Multiple gastric erosions and ulcerations, likely source of recent gastrointestinal bleed. No stigmata of bleeding at this time. 2. No evidence of esophageal varices. RECOMMENDATIONS: [address] [address] PROCEDURE REPORT Name: DIANE LIEBERMAN Room #: [facility] IN M.R.#: [id number] Admission: 03/09/19 ������������������ Attend Phys: Jaron Salas MD Discharge: ������������������ Date of : 57 Report #: [id number] 1. We will discontinue octreotide drip at this time. 2. Continue PPI therapy b.i.d. 3. We will add Carafate when patient is taking p.o. in the near future. 4. Continue to monitor hemoglobin. Thank you for allowing me to participate in her care. ��������������������������������������������� <ELECTRONICALLY SIGNED> ���������������������������������������� By: Gary Aguilar MD ��������������������������������������������� 03/15/19 1109 [id number] [id number] Gary Aguilar MD /nt
[2019-03-15 13:09] LABS: MAGNESIUM 1.5 mg/dL (1.8-2.4)
[2019-03-15 13:11] LABS: POTASSIUM 2.9 mmol/L (3.5-5.1)
--- NOTE | 2019-03-15 13:36 | NUR ---
WOUND FOLLOW UP: PT. WAS SEEN TODAY BY DR. JONES AND MYSELF. PT. WOUNDS TO HER LEFT TOES REMAIN DRY, STABLE ESCHAR AT THIS TIME. RECOMMENDATIONS: CONTINUE WITH CURRENT PLAN OF CARE. PT. AND STAFF NURSE WERE INSTRUCTED ON PLAN OF CARE.
--- NOTE | 2019-03-15 15:06 | PATH ---
[facility] [address] [place] [address] PATHOLOGY RPT PROCEDURE Name: DIANE FUNK Room #: 241-P ADM IN M.R.#: [id number] ������������������ Admission: 03/09/19 ������������������ Date of : 57 Discharge: Report #: [id number] Path Case #: [id number] [facility] Accession Number: [id number] . 01 Material submitted: . gastrointestinal site - BX GASTRITIS R/O H. PYLORI . 01 Clinical history: . GI bleed Multiple gastric ulcers, gastritis Rule H. pylori . 02 Diagnosis: Gastric mucosa, gastritis R/O H. pylori, endoscopioc biopsy: - Mild chronic gastritis with features of reactive gastropathy. - Negative for intestinal metaplasia or atrophy. - Negative for Helicobacter pylori (properly controlled immunohistochemical stain performed). . (IUV:erica; 03/15/2019) QMS/03/15/2019 . 02 Electronically signed: . Coleen U Vadlamani, MD, Pathologist NPI- [id number] . 01 Gross description: . The specimen is received in formalin, labeled "Diane Funk, BX gastritis" and consists of 4 fragments of vazquez tissue measuring between 0.2 x 0.2 cm and 0.5 x 0.3 x 0.1 cm which are entirely submitted in A1. (SDY; 03/14/2019) SYU/SYU . 02 Pathologist provided ICD-10: K29.50, K31.9 . 02 CPT . 740480, T26215 Specimen Comment: A courtesy copy of this report has been sent to Specimen Comment: [phone], , . Specimen Comment: Report sent to ,DR GILLIAM / DR LOERA Performed at: [address], [place] [id number] MD Amrit Johnson MD Phone: [phone] Performed at: [address] [address] PATHOLOGY RPT PROCEDURE Name: DIANE FUNK Room #: 241-P ADM IN M.R.#: [id number] ������������������ Admission: 03/09/19 ������������������ Date of : 57 Discharge: Report #: [id number] Path Case #: [id number] [address] [place] [id number] MD Coleen Nicolas MD Phone: [phone]
--- NOTE | 2019-03-15 18:31 | NUR ---
PRECEDEX D/C'D. PT CONT TO BE LETHARGIC YET RESTLESS. A/OX 1, RARELY FOLLOWING COMMANDS. PO DIET RESUMED, PT HAS POOR PO INTAKE, IF FLUIDS REMAIN INFUSING. ELYTE'S REPLACED PER PROTOCOL. RILEY WRIST RESTRAINTS REMAIN PT IS CONFUSED AND HAS HX OF PULLING IV'S. CCT ORDERS, AWAITING BED ASSIGNMENT.
[2019-03-15 19:30] LABS: MAGNESIUM 2.1 mg/dL (1.8-2.4)
[2019-03-15 19:33] LABS: POTASSIUM 2.8 mmol/L (3.5-5.1)
--- NOTE | 2019-03-15 20:59 | NUR ---
GCS 13. OPENS EYES SPONTANEOUSLY, CONFUSED, LOCALIZED RESPONSE TO PAINFUL STIMULI. ORIENTED TO PERSON. PT IS RESTLESS AND EASILY AGITATED. PULLS AT RESTRAINTS AND ATTEMPTS TO REMOVE NASAL CANNULA, O2 PROBE, ETC. INCONSISTENTLY FOLLOWS SIMPLE COMMANDS AND ANSWERS BASIC Y/N QUESTIONS. PRN ATIVAN AND HALDOL FOR AGITATION. SINUS RHYTHM ON MONITOR. O2 SAT > 92% ON 2L PER NASAL CANNULA. CPAP HS. SOFT DIET. PT HAS POOR APPETITE. ANDINO TO DD. ADEQUATE URINE OUTPUT. VITAL SIGNS AND ASSESSMENTS DOCUMENTED. WILL CONTINUE TO MONITOR.
[2019-03-16] VITALS (14 sets, daily range): BP systolic 87–149; BP diastolic 51–78
[2019-03-16 06:52] LABS: CALCIUM 8.1 mg/dL (8.5-10.1); POTASSIUM 3.5 mmol/L (3.5-5.1)
--- NOTE | 2019-03-16 09:34 | NUR ---
PT TRANSFERRING TO ROOM 352. REPORT CALLED. SIG OTHER NOTIFIED OF TRANSFER. ALL BELONGINGS PACKED TO GO WITH PT. PT REMAINS IN RESTRAINTS FOR TRANSFER.
--- NOTE | 2019-03-16 14:19 | NUR ---
PT CONTINUES TO REQUIRE RESTRAINTS FOR RESTLESSNESS AND SAFETY PULLS AT IVS AND SUCH. THERAPIES WORKING WITH PT AND AMB 150 FT TODAY WITH P.T. PT FROM [facility]. HER DPOA IS HER S.O BEATRIZ MERIDA, SHE ALSO HAS A SON AND OUT OF TOWN DTR AND S.O. IN CONTACT WITH THEM. PLAN TO RETURN TO [facility] WHEN MEDICALLY STABLE. PT TRANSFERED TO 3W TODAY.
--- NOTE | 2019-03-16 14:33 | NUR ---
DISCHARGE PLANNING. PATIENT TRANSFERRED OUT OF ICU TO 3W. PATIENT RESIDES AT [facility]. PLAN IS FOR PATIENT TO RETURN THERE. UPDATED CLINICAL INFORMATION FAXED TO [facility], VERIFIED RECEIVED. DATE OF DISCHARGE UNKNOWN AT THIS TIME. FOLLOWING TO ASSIST WITH DISCHARGE NEEDS. UNIT CM/SW AWARE.
--- NOTE | 2019-03-16 14:47 | NUR ---
SW reviewed chart and spoke with nursing and attending physician. Pt was transferred to from ICU this morning. PT/OT ordered to evaluate pt. nurse discharge planner faxed updates to [facility] post-acute liaison. Plan is for pt to return to [facility] when medically stable. PEDRO PABLO is following to assist as needed with discharge planning.
--- NOTE | 2019-03-16 16:50 | NUR ---
PT TRANSFRED FROM ICU, ALERT AND ORIENTED X2. RILEY RESTRAINTS. ASSESSMENT DOCUMENTED. Q1 HR ROUNDED, AND RESTRAINTS OFF AT 1230, PATIENT FOLLOWING SIMPLE COMMANDS. SR AND VSS AND WILL CONTINUE WITH POC.
[2019-03-17] VITALS (7 sets, daily range): BP systolic 85–143; BP diastolic 42–90
--- NOTE | 2019-03-17 05:45 | NUR ---
PT ARRIVED FROM ER EARLIER TODAY. STILL SOME COMFUSION AND SLOW TO ANSWER QUESTIONS, BUT FAST ON USING THE NURSING BUTTON. EARLY PART OF EVENING PT CALLED OUT FREQUENTLY. PT KEEPS MESSING WITH WOUND ON TOE, BANDAGED IT IT SO SHE WOULD LEAVE IT ALONE. 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 HOURLY ROUNDING.
[2019-03-17] MEDS ORDERED: NOVOLOG100 UNIT/1 SUBQ (08:21)
[2019-03-17] MEDS ORDERED: PANTOPRAZOLE SO40 M1 PO (08:21)
--- NOTE | 2019-03-17 09:31 | NUR ---
Follow up: Pt reports good appetite. Drinking glucerna BID. Per nsg, meal intake 1/3. Wt stable around 178 lbs x1 week. Hx of DM - BG controlled. Discharge summary note submitted today. Continue at low risk.
--- NOTE | 2019-03-17 14:12 | NUR ---
WOUND FOLLOW UP: PT. WAS SEEN TODAY BY DR. JONES AND MYSELF. PT. ESCHAR WAS STARTING TO PEEL OFF AND CATCH ON SHEETS AND SOCKS. PT. ESCHAR WAS PAIRED DOWN TODAY BY DR. JONES AND PT. TOLERATED WELL. RECOMMENDATIONS: CONTINUE WITH CURRENT PLAN OF CARE. PT. AND STAFF NURSE WERE INSTRUCTED ON PLAN OF CARE.
--- NOTE | 2019-03-17 14:32 | NUR ---
SW reviewed chart and spoke with nursing and attending physician. Pt is progressing towards goals for discharge. Discharge back to [facility] is anticipated for tomorrow. PEDRO PABLO spoke with pt's significant other/DPOA, Curt, via phone to provide update and notify of anticipated discharge. DPOA is aware and in agreement with discharge plan. master planner to update [place] post-acute liaison. PEDRO PABLO is following to assist as needed with discharge planning.
--- NOTE | 2019-03-17 17:08 | NUR ---
ASSUMED PATIENT CARE AT 0700. ALERT TO SELF. AMBULATED IN HALLWAY TOLERATED WELL. GIVEN 500ML NS BOLUS IN AM BP UP TO 143/74. PROGRESSING TOWARDS POC GOALS. DC TO SNF NOW.
== END 2019-03-17 16:51 | DRG 377 ==
LOC: ER 23:46 → ICU 03-09 01:47 → EROBS 03-09 01:47 → ICU 03-09 03:49 → 3W 03-16 10:00
PROVIDERS: Emergency Medicine; Hospitalist; Nurse Practitioner; Nurse Practitioner Family; ADMIT Internal Medicine
PROC: 30233N1 Transfusion of Nonautologous Red Blood Cells into Peripheral Vein, Percutaneous Approach (ICD-10-PCS; principal; 2019-03-09)
PROC: 5A09357 Assistance with Respiratory Ventilation, Less than 24 Consecutive Hours, Continuous Positive Airway Pressure (ICD-10-PCS; 2019-03-11)
PROC: B548ZZA Ultrasonography of Superior Vena Cava, Guidance (ICD-10-PCS; 2019-03-13)
PROC: 02HV33Z Insertion of Infusion Device into Superior Vena Cava, Percutaneous Approach (ICD-10-PCS; 2019-03-13)
PROC: 0DB68ZX Excision of Stomach, Via Natural or Artificial Opening Endoscopic, Diagnostic (ICD-10-PCS; 2019-03-14)
PROC: 5A09357 Assistance with Respiratory Ventilation, Less than 24 Consecutive Hours, Continuous Positive Airway Pressure (ICD-10-PCS; 2019-03-14)
PROC: 5A09357 Assistance with Respiratory Ventilation, Less than 24 Consecutive Hours, Continuous Positive Airway Pressure (ICD-10-PCS; 2019-03-15)
DX: K25.4 Chronic or unspecified gastric ulcer with hemorrhage (principal); R57.1 Hypovolemic shock; E43 Unspecified severe protein-calorie malnutrition; D62 Acute posthemorrhagic anemia; N17.9 Acute kidney failure, unspecified; E11.52 Type 2 diabetes mellitus with diabetic peripheral angiopathy with gangrene; I96 Gangrene, not elsewhere classified; E51.2 Wernicke's encephalopathy; I95.9 Hypotension, unspecified; F03.90 Unspecified dementia, unspecified severity, without behavioral disturbance, psychotic disturbance, mood disturbance, and anxiety; E03.9 Hypothyroidism, unspecified; F32.9 Major depressive disorder, single episode, unspecified; G47.00 Insomnia, unspecified; K21.9 Gastro-esophageal reflux disease without esophagitis; E11.51 Type 2 diabetes mellitus with diabetic peripheral angiopathy without gangrene; E11.621 Type 2 diabetes mellitus with foot ulcer; G47.33 Obstructive sleep apnea (adult) (pediatric); F41.9 Anxiety disorder, unspecified; M19.90 Unspecified osteoarthritis, unspecified site; I71.4 Abdominal aortic aneurysm, without rupture; B19.20 Unspecified viral hepatitis C without hepatic coma; Z66 Do not resuscitate; E11.65 Type 2 diabetes mellitus with hyperglycemia; G31.2 Degeneration of nervous system due to alcohol; I25.10 Atherosclerotic heart disease of native coronary artery without angina pectoris; F10.10 Alcohol abuse, uncomplicated; F43.10 Post-traumatic stress disorder, unspecified; R13.10 Dysphagia, unspecified; Z86.73 Personal history of transient ischemic attack (TIA), and cerebral infarction without residual deficits; Z88.0 Allergy status to penicillin; Z91.041 Radiographic dye allergy status; Z68.29 Body mass index [BMI] 29.0-29.9, adult; Z86.718 Personal history of other venous thrombosis and embolism; Z79.899 Other long term (current) drug therapy; Z95.5 Presence of coronary angioplasty implant and graft
CPT/HCPCS: 10078; 10879; 62110; 62900

== ENCOUNTER → 2019-04-05 | Outpatient (CLI) | payer OTHER ==
[~2019-04-05] MED LIST: ALBUTEROL2.5 MG/31 INH; ASPIR 8181 MG PO; DEPAKOTE 250MG250 M1 PO; HUMALOG100 UNIT/1 SUBQ; IRON325 PO; LANTUS100 UNIT/M SUBQ; LIPITOR80 MG PO; NOVOLOG100 UNIT/1 SUBQ; PANTOPRAZOLE SO40 M1 PO; PROBIOTIC1 EAC1 PO; SEROQUEL 50 MG50 MG PO; SINGULAIR 10 MG10 M1 PO; SYMBICORT160 MCG/4. INH; SYNTHROID175 MCG PO; TYLENOL325 MG PO; VITAMIN C100 MG PO; VITAMIN D1000 UNI1 PO; XARELTO20 MG PO; ZYVOX600 MG PO
== END ==
LOC: HYPER 06:15
DX: E11.621 Type 2 diabetes mellitus with foot ulcer (principal); L97.521 Non-pressure chronic ulcer of other part of left foot limited to breakdown of skin; I70.262 Atherosclerosis of native arteries of extremities with gangrene, left leg; E11.51 Type 2 diabetes mellitus with diabetic peripheral angiopathy without gangrene; E55.9 Vitamin D deficiency, unspecified; E66.9 Obesity, unspecified; E03.9 Hypothyroidism, unspecified; E78.5 Hyperlipidemia, unspecified; B18.2 Chronic viral hepatitis C; G47.30 Sleep apnea, unspecified; I25.10 Atherosclerotic heart disease of native coronary artery without angina pectoris; I95.9 Hypotension, unspecified; J44.9 Chronic obstructive pulmonary disease, unspecified; K21.9 Gastro-esophageal reflux disease without esophagitis; M17.9 Osteoarthritis of knee, unspecified; M62.521 Muscle wasting and atrophy, not elsewhere classified, right upper arm; M62.522 Muscle wasting and atrophy, not elsewhere classified, left upper arm; M19.90 Unspecified osteoarthritis, unspecified site; F10.11 Alcohol abuse, in remission; F17.200 Nicotine dependence, unspecified, uncomplicated; F43.10 Post-traumatic stress disorder, unspecified; F03.91 Unspecified dementia, unspecified severity, with behavioral disturbance; F32.9 Major depressive disorder, single episode, unspecified; F41.9 Anxiety disorder, unspecified; Z79.4 Long term (current) use of insulin; Z86.73 Personal history of transient ischemic attack (TIA), and cerebral infarction without residual deficits